=== PATIENT | female | born 1955 | race African-American/Black ===

== ENCOUNTER 2020-02-03 14:35 | Inpatient (IN) ==
[2020-02-03] MEDS ORDERED: SODIUM CHLORIDE 0.9% 500 ML IV STA (15:14)
[2020-02-03 15:59] LABS: Basophils % 0.1 % (0.0-0.8); Hematocrit 37.8 VOL% (35.7-47.0); Hemoglobin 12.3 GM/DL (12.0-16.0); Immature Granulocytes % 0.3 %; Immature Granulocytes Absolute 0.03 #; Lymphocytes # 1.3 10*3/uL (1.4-4.0); Lymphocytes % 14.8 % (21.3-54.2); Mean Corpuscular HGB Conc 32.5 GM/DL (32-36); Mean Corpuscular Volume 91.1 FL (87-102); Mean Platelet Volume 10.5 FL (9.6-12.0); Monocytes % 7.9 % (1.7-12.7); Neutrophils % 76.9 % (38.7-73.9); Platelet Count 282 T/CUMM (130-400); Red Blood Count 4.15 MC/CUMM (3.8-5.5); Red Cell Distribution Width 14.1 % (9.3-17.3); White Blood Count 8.9 T/CUMM (4-12)
[2020-02-03 16:52] LABS: Albumin 3.2 G/DL (3.4-5.0); Bilirubin,Total 0.4 MG/DL (0.2-1.0); Calcium 9.2 MG/DL (8.5-10.1); Osmolality,Calculated 278.4 MOS/KG (273-304); Total Protein 8.5 G/DL (6.4-8.3)
[2020-02-03] MEDS ORDERED: ONDANSETRON 4 MG/2 ML VIAL IV PRN (17:48)
[2020-02-03] MEDS ORDERED: GLUCAGON 1 MG VIAL IM PRN (17:48)
[2020-02-03] MEDS ORDERED: DEXTROSE 10% 250 ML BAG IV PRN (17:48)
[2020-02-03] MEDS ORDERED: AZITHROMYCIN INJ 500 MG in SODIUM CHLORIDE 0.9% 250 ML IV SCH (18:00)
[2020-02-03] MEDS ORDERED: SODIUM CHLORIDE 0.9% 1,000 ML IV SCH (18:30)
[2020-02-03] MEDS: ASCORBIC ACID 500 MG TABLET PO SCH (21:35)
[2020-02-03] MEDS: cefTRIAXone 1,000 MG in SYRINGE 1 EACH IV SCH (21:35)
[2020-02-03] MEDS: ACETAMINOPHEN 325 MG TABLET PO PRN (21:35)
[2020-02-03 22:55] LABS: Apearance,Urine CLEAR (Clear); Bacteria,Urine Occasional /HPF (Few); Bilirubin,Urine Negative (Negative); Blood, Urine Moderate mg/dL (Negative); Glucose,Urine (UA) Negative (Negative); Hyaline Casts,Urine 14 /LPF (0-3); Ketones,Urine Negative (Negative); Mucus,Urine Occasional /LPF (Occasional); Nitrite,Urine Negative (Negative); Protein,Urine 30 MG/DL; RBC,Urine 1 /HPF (0-4); Squamous Epithelial Cell,Urine Occasional /HPF (0-10); Urine Color Yellow (Yellow); Urine Specific Gravity 1.016 (1.001-1.035); Urine Urobilinogen < 2.0 EU/DL (0.2-1.0); WBC,Urine 3 /HPF (0-6)
[2020-02-04 06:31] LABS: Eosinophils % 0.1 % (0.00-10.9); Hematocrit 30.3 VOL% (35.7-47.0); Hemoglobin 9.8 GM/DL (12.0-16.0); Immature Granulocytes % 0.3 %; Immature Granulocytes Absolute 0.02 #; Lymphocytes % 13.1 % (21.3-54.2); Mean Corpuscular HGB Conc 32.3 GM/DL (32-36); Mean Corpuscular Volume 93.8 FL (87-102); Mean Platelet Volume 10.4 FL (9.6-12.0); Monocytes % 7.4 % (1.7-12.7); Neutrophils % 79.1 % (38.7-73.9); Platelet Count 228 T/CUMM (130-400); Red Blood Count 3.23 MC/CUMM (3.8-5.5); White Blood Count 7.4 T/CUMM (4-12)
[2020-02-04 06:57] LABS: Albumin 2.1 G/DL (3.4-5.0); Bilirubin,Total 0.4 MG/DL (0.2-1.0); Calcium 7.7 MG/DL (8.5-10.1); Osmolality,Calculated 284.4 MOS/KG (273-304); Thyroid Stimulating Hormone 0.957 uIU/ml (0.358-3.74); Total Protein 6.6 G/DL (6.4-8.3)
[2020-02-04] MEDS: ASCORBIC ACID 500 MG TABLET PO SCH ×2 (08:55→20:45)
[2020-02-04] MEDS: POTASSIUM CHLORIDE 20 MEQ TABLET PO PRN ×4 (08:55→17:30)
[2020-02-04] MEDS: CHOLECALCIFEROL 1,000 UNIT TABLET PO SCH (08:55)
[2020-02-04] MEDS: ZINC GLUCONATE 50 MG TABLET PO SCH (08:55)
[2020-02-04] MEDS ORDERED: PANTOPRAZOLE 40 MG TABLET PO SCH (09:00)
[2020-02-04] MEDS ORDERED: LOPERAMIDE 2 MG CAPSULE PO ONE (15:09)
[2020-02-04] MEDS ORDERED: LOPERAMIDE 2 MG CAPSULE PO PRN (15:09)
[2020-02-04] MEDS: cefTRIAXone 1,000 MG in SYRINGE 1 EACH IV SCH (15:52)
[2020-02-04] MEDS: AZITHROMYCIN 250 MG TABLET PO SCH (15:52)
[2020-02-04] MEDS: ENOXAPARIN 40 MG/0.4 ML SYRINGE SUBCUT SCH (20:45)
[2020-02-05 06:15] LABS: Basophils % 0.1 % (0.0-0.8); Eosinophils % 0.1 % (0.00-10.9); Hematocrit 38.5 VOL% (35.7-47.0); Immature Granulocytes % 0.9 %; Immature Granulocytes Absolute 0.09 #; Lymphocytes # 1.9 10*3/uL (1.4-4.0); Lymphocytes % 19.1 % (21.3-54.2); Mean Corpuscular HGB Conc 31.4 GM/DL (32-36); Mean Corpuscular Volume 94.6 FL (87-102); Mean Platelet Volume 10.6 FL (9.6-12.0); Monocytes % 7.8 % (1.7-12.7); Red Cell Distribution Width 14.3 % (9.3-17.3)
[2020-02-05 06:27] LABS: Hemoglobin 12.1 GM/DL (12.0-16.0); Platelet Count 316 T/CUMM (130-400); Red Blood Count 4.07 MC/CUMM (3.8-5.5); White Blood Count 10.1 T/CUMM (4-12)
[2020-02-05 06:38] LABS: Albumin 2.7 G/DL (3.4-5.0); Bilirubin,Total 0.5 MG/DL (0.2-1.0); Calcium 9.6 MG/DL (8.5-10.1); Osmolality,Calculated 276.7 MOS/KG (273-304); Total Protein 8.7 G/DL (6.4-8.3)
[2020-02-05] MEDS: CHOLECALCIFEROL 1,000 UNIT TABLET PO SCH (08:11)
[2020-02-05] MEDS: AZITHROMYCIN 250 MG TABLET PO SCH (08:11)
[2020-02-05] MEDS: ZINC GLUCONATE 50 MG TABLET PO SCH (08:11)
[2020-02-05] MEDS: cefTRIAXone 1,000 MG in SYRINGE 1 EACH IV SCH (08:11)
[2020-02-05] MEDS: ASCORBIC ACID 500 MG TABLET PO SCH ×2 (08:11→21:05)
[2020-02-05 09:31] LABS: Calcium 9.5 MG/DL (8.5-10.1); Ferritin 1110.1 ng/ml (8-252); Osmolality,Calculated 278.5 MOS/KG (273-304)
[2020-02-05] MEDS: ACETAMINOPHEN 325 MG TABLET PO PRN (16:19)
[2020-02-05] MEDS: ENOXAPARIN 40 MG/0.4 ML SYRINGE SUBCUT SCH (21:05)
[2020-02-06 05:20] LABS: Basophils % 0.1 % (0.0-0.8); Eosinophils # 0.1 10*3/uL (0.0-0.87); Hematocrit 35.6 VOL% (35.7-47.0); Hemoglobin 11.3 GM/DL (12.0-16.0); Immature Granulocytes Absolute 0.09 #; Lymphocytes # 1.1 10*3/uL (1.4-4.0); Lymphocytes % 12.5 % (21.3-54.2); Mean Corpuscular HGB Conc 31.7 GM/DL (32-36); Mean Platelet Volume 10.7 FL (9.6-12.0); Monocytes % 8.6 % (1.7-12.7); Neutrophils % 76.8 % (38.7-73.9); Platelet Count 309 T/CUMM (130-400); Red Blood Count 3.87 MC/CUMM (3.8-5.5); Red Cell Distribution Width 14.5 % (9.3-17.3); White Blood Count 8.8 T/CUMM (4-12)
[2020-02-06 05:40] LABS: Albumin 2.5 G/DL (3.4-5.0); Bilirubin,Total 0.4 MG/DL (0.2-1.0); Calcium 9.2 MG/DL (8.5-10.1); Osmolality,Calculated 274.7 MOS/KG (273-304); Total Protein 8.2 G/DL (6.4-8.3)
[2020-02-06 05:42] LABS: Ferritin 1052.4 ng/ml (8-252); Osmolality,Calculated 276.5 MOS/KG (273-304)
[2020-02-06] MEDS: cefTRIAXone 1,000 MG in SYRINGE 1 EACH IV SCH (09:12)
[2020-02-06] MEDS: CHOLECALCIFEROL 1,000 UNIT TABLET PO SCH (09:13)
[2020-02-06] MEDS: ASCORBIC ACID 500 MG TABLET PO SCH ×2 (09:13→20:20)
[2020-02-06] MEDS: AZITHROMYCIN 250 MG TABLET PO SCH (09:13)
[2020-02-06] MEDS: ZINC GLUCONATE 50 MG TABLET PO SCH (09:13)
[2020-02-06] MEDS: ENOXAPARIN 40 MG/0.4 ML SYRINGE SUBCUT SCH (20:20)
[2020-02-07 06:45] LABS: Calcium 9.9 MG/DL (8.5-10.1); Ferritin 979.5 ng/ml (8-252); Osmolality,Calculated 277.4 MOS/KG (273-304)
[2020-02-07] MEDS: ZINC GLUCONATE 50 MG TABLET PO SCH (09:28)
[2020-02-07] MEDS: AZITHROMYCIN 250 MG TABLET PO SCH (09:28)
[2020-02-07] MEDS: cefTRIAXone 1,000 MG in SYRINGE 1 EACH IV SCH (09:28)
[2020-02-07] MEDS: CHOLECALCIFEROL 1,000 UNIT TABLET PO SCH (09:28)
[2020-02-07] MEDS: ASCORBIC ACID 500 MG TABLET PO SCH (09:28)
[2020-02-07 17:33] VITALS: BP 144/87
== END 2020-02-07 18:04 | disposition home or self-care (01) | DRG 177 ==
LOC: N.ED 14:35 → N.EDINP 17:47 → N.2W 20:21
PROVIDERS: ADMIT Hospitalist; ATTEND Hospitalist